=== PATIENT | female | born 1970 | race Caucasian/White ===

== ENCOUNTER 2016-06-20 13:22 | Emergency (ER) | payer BC ==
--- NOTE | 2016-06-20 14:58 | UC ---
Throat Pain/Nasal Edgar HPI - HPI Summary HPI Summary: has been getting hives for no apparent reason on/off for the past 3-4 months, recently treated with Keflex and Levaquin (pt thought the provider said they thought it was a staph infection) she has treated it with apple cider vinegar, pt reports she is following with her pcp and rhumatology for an elevated JEISON but is not sure what other labs have been done. Pt reports feeling generally not well - History of Current Complaint Chief Complaint: TRISTAkin Stated Complaint: SORE THROAT,RASH Time Seen by Provider: 06/20/16 14:37 Hx Obtained From: Patient ?: No Onset/Duration: Lasting Weeks, Still Present - waxing and waneing sx Severity: Moderate Cough: None - Allergies/Home Medications Allergies/Adverse Reactions: Allergies Allergy/AdvReac Type Severity Reaction Status Date / Time Sulfa Antibiotics Allergy Difficulty Verified 06/20/16 13:47 Breathing Home Medications: Home Medications Lisdexamfetamine Dimesylate [Vyvanse] 60 mg PO DAILY 06/20/16 [History Confirmed 06/20/16] Phentermine HCl 37.5 mg PO DAILY 06/20/16 [History Confirmed 06/20/16] PMH/Surg Hx/FS Hx/Imm Hx Previously Healthy: Yes - Surgical History Surgical History: Yes Surgery Procedure, Year, and Place: HYSTERECTOMY - Family History Known Family History: Positive: None Family History: denies wzgsoj-[id number]-[id number] issues in family lineage, denies autoimmune disorders - Social History Occupation: Employed Full-time - teacher Lives: With Family Alcohol Use: Occasionally Substance Use Type: None Smoking Status (MU): Never Smoked Tobacco Review of Systems Constitutional: Fatigue Skin: Rash - itchy red some area open from itching Eyes: Negative ENT: Negative Respiratory: Negative Cardiovascular: Negative Gastrointestinal: Negative Genitourinary: Negative Motor: Negative Neurovascular: Negative Musculoskeletal: Negative Neurological: Negative Psychological: Negative All Other Systems Reviewed And Are Negative: Yes Physical Exam Triage Information Reviewed: Yes Appearance: Well-Appearing, Well-Nourished, Pain Distress - distressed due itching Vital Signs: Initial Vital Signs Temp 98.3 F 06/20/16 13:40 Pulse 86 06/20/16 13:40 Resp 18 06/20/16 13:40 BP 134/101 06/20/16 13:40 Pulse Ox 100 06/20/16 13:40 Vital Signs Reviewed: Yes Eye Exam: Normal Eyes: Positive: Conjunctiva Clear ENT Exam: Normal ENT: Positive: Normal ENT inspection, Hearing grossly normal, Pharynx normal, TMs normal. Negative: Nasal congestion, Nasal drainage, Tonsillar swelling, Tonsillar exudate, Trismus, Muffled/hoarse voice Dental Exam: Normal Neck exam: Normal Neck: Positive: Supple, Nontender, No Lymphadenopathy Respiratory Exam: Normal Respiratory: Positive: Chest non-tender, Lungs clear, Normal breath sounds, No respiratory distress, No accessory muscle use Cardiovascular Exam: Normal Cardiovascular: Positive: RRR, No Murmur, Pulses Normal, Brisk Capillary Refill Abdominal Exam: Normal Abdomen Description: Positive: Nontender, No Organomegaly, Soft Bowel Sounds: Positive: Present Musculoskeletal Exam: Normal Musculoskeletal: Positive: Strength Intact, ROM Intact Neurological Exam: Normal Neurological: Positive: Alert, Muscle Tone Normal Psychological Exam: Normal Psychological: Positive: Normal Response To Family Skin: Positive: rashes - chest and neck Throat Pain/Nasal Course/Dx - Course Course Of Treatment: prednisone, benadryl, cool compress, follow with pcp on Thursday as planned (and to have BP rechecked) - Differential Dx/Diagnosis Differential Diagnosis/HQI/PQRI: Otitis Media, Peritonsillar Abscess, Pharyngitis, Sinusitis, URI, Other - idiopathic urticaria Provider Diagnoses: Idopathic urticaria Discharge - Discharge Plan Condition: Stable Disposition: HOME Prescriptions: predniSONE TAB* [Deltasone TAB*] 10 mg PO DAILY #18 tab Patient Education Materials: Itchy Skin (ED), Dermatitis (ED) Referrals: Tigist Vazquez [Medical Doctor] - 1 Week Additional Instructions: Follow with your primary care doctor on Thursday as planned
[2016-06-20 15:30] VITALS: BP 124/80
== END 2016-06-20 15:34 | disposition home or self-care (01) ==
LOC: UCCORT 13:22
DX: L50.1 Idiopathic urticaria (principal); Z88.2 Allergy status to sulfonamides
CPT/HCPCS: 87651; 99212; G0463

== ENCOUNTER 2016-09-26 17:02 | Emergency (ER) | payer BC ==
[2016-09-26 17:15] VITALS: BP 129/89
--- NOTE | 2016-09-26 18:27 | UC ---
Skin Complaint HPI - HPI Summary HPI Summary: 45 y/o female presents to the urgent care c/o painful blister in her mouth for the past 2 days. She also states has some blister on her face that comes and goes for several month. Patient recently had needle biopsy of her thyroid where some benign nodules were removed as well as a cyst in her neck. She states the past year she has had several infection: skin, uti etc. Her PCP has done multiple blood works and specialty studies but he hasn't been able to find what is going on with her. Patient denies SOB, chest pain, abdominal pain, N/V/ D. Pt would like to change PCP. - History of Current Complaint Chief Complaint: UCGeneralIllness Time Seen by Provider: 09/26/16 17:33 Stated Complaint: SKIN/ORAL COMPLAINT, NECK PAIN, ELEVATED BP Hx Obtained From: Patient ?: No Onset/Duration: Sudden Onset, Lasting Days, Still Present Skin Exposure Onset/Duration: Days Ago Onset Severity: Moderate Current Severity: Moderate Pain Intensity: 5 Pain Scale Used: 0-10 Numeric Location: Discrete - under the tongue Character: Painful Aggravating: Nothing Alleviating: Nothing Associated Signs & Symptoms: Positive: Fever - mild, Rash - face with some crusted blisters - Allergy/Home Medications Allergies/Adverse Reactions: Allergies Allergy/AdvReac Type Severity Reaction Status Date / Time Sulfa Antibiotics Allergy Difficulty Verified 09/26/16 17:15 Breathing Home Medications: Home Medications Lisdexamfetamine (NF) [Vyvanse (NF)] 1 tab PO DAILY 09/26/16 [History Confirmed 09/26/16] Review of Systems Constitutional: Fever - mild Skin: Rash - some crusted blister on face Eyes: Negative ENT: Negative Respiratory: Negative Cardiovascular: Negative Gastrointestinal: Negative Genitourinary: Negative Motor: Negative Neurovascular: Negative Musculoskeletal: Negative Neurological: Negative Psychological: Negative All Other Systems Reviewed And Are Negative: Yes PMH/Surg Hx/FS Hx/Imm Hx Previously Healthy: No - On and off skin infections and UTIs Endocrine History: Other - benign thyroid nodules s/p neddle biopsy Other Endocrine History: thyroid nodules s/p needle biopsy Psychological History: Other - ADHD Other Psychological History: ADHD - Surgical History Surgical History: Yes Surgery Procedure, Year, and Place: HYSTERECTOMY - Family History Known Family History: Positive: Hypertension, Diabetes, Other - hyperthyrodism Family History: denies [id number] issues in family lineage, denies autoimmune disorders - Social History Alcohol Use: None Substance Use Type: None Smoking Status (MU): Never Smoked Tobacco Physical Exam Triage Information Reviewed: Yes Appearance: Well-Appearing, No Pain Distress, Well-Nourished, Obese Vital Signs: Initial Vital Signs Temp 98.7 F 09/26/16 17:07 Pulse 68 09/26/16 17:07 Resp 16 09/26/16 17:07 BP 129/89 09/26/16 17:07 Pulse Ox 100 09/26/16 17:07 Vital Signs Reviewed: Yes Eye Exam: Normal Eyes: Positive: Conjunctiva Clear ENT Exam: Normal ENT: Positive: Normal ENT inspection, Hearing grossly normal, Pharynx normal, TMs normal, Other: - Mouth:5 aptous ulcers in the floor of the mouth and ventral side of tongue. Negative: Nasal congestion, Nasal drainage Dental Exam: Normal Dental: Negative: Cervical Lymphadenopathy Neck exam: Normal Neck: Positive: Supple, Nontender, No Lymphadenopathy Respiratory Exam: Normal Respiratory: Positive: Chest non-tender, Lungs clear, Normal breath sounds Cardiovascular Exam: Normal Cardiovascular: Positive: RRR, No Murmur, Pulses Normal Abdominal Exam: Normal Abdomen Description: Positive: Nontender, No Organomegaly, Soft. Negative: CVA Tenderness (R), CVA Tenderness (L) Bowel Sounds: Positive: Present Musculoskeletal Exam: Normal Neurological Exam: Normal Psychological Exam: Normal Skin: Positive: Other - Rt cheek with 3 crusted blister, no swelling or erythema noted, no pus, no tenderness Course/Dx - Course Course Of Treatment: Mouth ulcers:ENT: - Mouth:5 aptous ulcers in the floor of the mouth and ventral side of tongue. Rt cheek with 3 crusted blister, no swelling or erythema noted, no pus, no tenderness. Patient Rx triamcinolone paste for aphthous ulcer and Adalapene topical for her acne. Patient's concerns were answer. Pt with Hx of multiple skin infections and not happy with PCP. Pt given advised to call the Physician referral center. - Differential Diagnoses - Skin Complaint Differential Diagnoses: Allergic Reaction, Cellulitis, Contact Dermatitis, Impetigo - Diagnoses Provider Diagnoses: aphtous ulcer, acne Discharge - Discharge Plan Condition: Stable Disposition: HOME Prescriptions: Adapalene 0.1% CREAM (NF) [Differin 0.1 % CREAM (NF)] 0.1 % EX QPM #1 cre Triamcinolone PASTE 0.1% (NF) [Triamcinolone 0.1% PASTE *] 1 applic TOPICAL QID #1 tube Patient Education Materials: Acne (ED), Gingivostomatitis (ED) Referrals: [facility] [place] [facility] [Outside] - 1 Week Additional Instructions: Please take medications as directed and make an appt with a PCP in a week since you want to change PCP for further evaluation and treatment on your thyroid problem. If symptoms worse please return to the urgent care for further treatment.
== END 2016-09-26 18:23 | disposition home or self-care (01) ==
LOC: UCCORT 17:02
DX: K12.0 Recurrent oral aphthae (principal); L70.9 Acne, unspecified
CPT/HCPCS: 99212; G0463

== ENCOUNTER 2017-04-21 07:57 | Emergency (ER) | payer BC ==
[2017-04-21 08:06] VITALS: BP 124/78
--- NOTE | 2017-04-21 09:11 | UC ---
Throat Pain/Nasal Edgar HPI - HPI Summary HPI Summary: 3 DAYS OF SORE THROAT, TENDER LYMPH NODES, PAINFUL SORES IN MOUTH AND SUBJECTIVE FEVER. - History of Current Complaint Chief Complaint: UCGeneralIllness Stated Complaint: FEVER/ST/SWOLLEN THROAT GLANDS Time Seen by Provider: 04/21/17 08:03 Hx Obtained From: Patient ?: No Onset/Duration: Gradual Onset, Lasting Days, Still Present, Worse Since - PROGRESSIVELY Severity: Moderate Pain Intensity: 8 Pain Scale Used: 0-10 Numeric Cough: None Associated Signs & Symptoms: Positive: Dysphagia, Nasal Discharge - MINIMAL, Fever - SUBJECTVE, Rash - SORES IN MOUTH. Negative: FB Sensation, Drooling, Wheezing, Hoarseness, Sinus Discomfort, Vomiting - Epiglottits Risk Factors Epiglottis Risk Factors: Negative - Allergies/Home Medications Allergies/Adverse Reactions: Allergies Allergy/AdvReac Type Severity Reaction Status Date / Time Sulfa Antibiotics Allergy Difficulty Verified 04/21/17 08:06 Breathing Home Medications: Home Medications Cholecalciferol [Vitamin D3] 04/21/17 [History Confirmed 04/21/17] FLUoxetine* [Prozac*] 04/21/17 [History Confirmed 04/21/17] PMH/Surg Hx/FS Hx/Imm Hx Previously Healthy: Yes - Surgical History Surgical History: Yes Surgery Procedure, Year, and Place: HYSTERECTOMY - Family History Known Family History: Positive: None, Hypertension, Diabetes, Other - hyperthyrodism Family History: denies [id number]-[id number] issues in family lineage, denies autoimmune disorders - Social History Occupation: Employed Full-time Lives: With Family Alcohol Use: None Substance Use Type: None Smoking Status (MU): Never Smoked Tobacco - Immunization History Most Recent Influenza Vaccination: not current Review of Systems Constitutional: Fever Skin: Rash - in mouth Eyes: Negative ENT: Sore Throat, Nasal Discharge - minimal Respiratory: Negative Cardiovascular: Negative Gastrointestinal: Negative Musculoskeletal: Negative Neurological: Negative Psychological: Negative All Other Systems Reviewed And Are Negative: Yes Physical Exam Triage Information Reviewed: Yes Appearance: Well-Appearing, No Pain Distress, Well-Nourished Vital Signs: Initial Vital Signs Temp 98.5 F 04/21/17 08:01 Pulse 79 04/21/17 08:01 Resp 18 04/21/17 08:01 BP 124/78 04/21/17 08:01 Pulse Ox 100 04/21/17 08:01 Vital Signs Reviewed: Yes Eyes: Positive: Conjunctiva Clear. Negative: Discharge ENT: Positive: Hearing grossly normal, TM bulging, Uvula midline, Other - vesicular lesions on buchal mucosa. Negative: Nasal congestion, Tonsillar swelling, Tonsillar exudate, Hoarse voice, Dental tenderness, Sinus tenderness Dental Exam: Normal Neck: Positive: Supple, Tenderness @, Enlarged Nodes @ Respiratory: Positive: Lungs clear, Normal breath sounds, No respiratory distress, No accessory muscle use Cardiovascular: Positive: RRR, No Murmur Musculoskeletal Exam: Normal Neurological: Positive: Alert, Muscle Tone Normal Psychological: Positive: Age Appropriate Behavior Skin: Positive: Other - lesions on buchal mucosa Throat Pain/Nasal Course/Dx - Differential Dx/Diagnosis Differential Diagnosis/HQI/PQRI: Pharyngitis Provider Diagnoses: pharyngitis, herpes gingavastomatitis Discharge - Discharge Plan Condition: Stable Disposition: HOME Prescriptions: Magic Mouth Was-MARY ELLEN/MAAL/LIDO* 5 ml SWISH SPIT QID PRN #100 ml PRN Reason: Pain ValACYclovir (*) [Valtrex 1 GM(*)] 1 gm PO BID #20 tab Patient Education Materials: Pharyngitis (ED), Gingivostomatitis (ED) Referrals: Reese Clark MD [Primary Care Provider] - 3 Days Additional Instructions: VALTREX: VALTREX is used to treat infections caused by the Herpes family of viruses. It's available as capsules or ointment. VALTREX is most effective if started at the first sign of the viral outbreak. It can decrease the severity and duration of symptoms. However, it doesn't eliminate the virus from the body completely. If you're prone to repeated outbreaks of herpes, you'll continue to have attacks. Take the pills for the full recommended course. Occasionally, mild nausea or headaches may occur. Call the doctor if you develop wheezing, itching, rash, shortness of breath , or lightheadedness. DISCUSSED, TRY MAGIC MOUTHWASH TO CONTROL PAIN PRIOR TO EATING. WE ARE DOING SOME LABORATORY STUDIES. RESULTS SHOULD BE AVAILABLE IN ABOUT 2 DAYS.
--- NOTE | 2017-04-24 07:23 | UC ---
- Progress Note Progress Note: 3+ normal azra on throat culture no change [facility] [place] 04/24/17
== END 2017-04-21 09:03 | disposition home or self-care (01) ==
LOC: UCCORT 07:57
DX: J02.9 Acute pharyngitis, unspecified (principal); B00.2 Herpesviral gingivostomatitis and pharyngotonsillitis; Z88.2 Allergy status to sulfonamides
CPT/HCPCS: 87070; 87529; 87651; 87798; 99212; G0463